=== PATIENT | male | born 1960 | race Caucasian/White ===

== ENCOUNTER 2021-09-09 11:06 | Inpatient (IN) ==
[2021-09-09] MEDS ORDERED: Isovue-370 500 ML BOTTLE IVP ONE (11:56)
[2021-09-09] MEDS ORDERED: 0.9 % Sodium Chloride 1,000 ML IVC ONE (11:56)
[2021-09-09 12:10] LABS: Hematocrit 23.9 % (37.5-50.1); Mean Corpuscular HGB Conc 29.3 g/dL (31.6-35.5); Mean Corpuscular Hemoglobin 27.6 pg (28.0-33.3); Mean Corpuscular Volume 94.1 fL (83.0-100.0); Mean Platelet Volume 10.3 fL (9.4-12.4); Platelet Count 283 K/mcL (140-400); Red Blood Count 2.54 M/mcL (4.19-5.50); Red Cell Distribution Width 14.3 % (11.5-14.5); White Blood Count 9.6 K/mcL (4.3-11.1)
[2021-09-09 12:21] LABS: INR 1.3; Prothrombin Time 14.2 Seconds (9.4-12.1)
[2021-09-09 12:24] LABS: Activated Partial Thrombo Time 33.2 Seconds (26.0-36.0)
[2021-09-09 12:27] LABS: BUN/Creatinine Ratio 23 (6-26); Blood Urea Nitrogen 26 mg/dL (6-20); Calcium 8.5 mg/dL (8.6-10.3); Carbon Dioxide 33 mEq/L (23-29); Chloride 98 mEq/L (98-107); Creatine Kinase 410 Units/L (30-223); Glucose 94 mg/dL (70-105); Magnesium 2.5 mg/dL (1.6-2.6); Osmolality,Calculated 285 (280-300); Potassium 5.1 mEq/L (3.5-5.1); Sodium 135 mEq/L (136-145); eGFR For African Americans > 60 (> 60); eGFR For Non-African Americans > 60 (> 60)
[2021-09-09 12:32] LABS: Troponin I 0.06 ng/mL (< 0.04)
[2021-09-09 12:33] LABS: Phosphorous 3.5 mg/dL (2.7-4.5)
[2021-09-09] MEDS ORDERED: Azithromycin 500 MG in 0.9 % Sodium Chloride 250 ML IVPB ONE (13:20)
[2021-09-09] MEDS ORDERED: cefTRIAXone 1,000 MG in 0.9 % Sodium Chloride Mini Bag 100 ML IVPB ONE (13:20)
[2021-09-09] MEDS ORDERED: Aspirin 325 MG TABLET PO ONE (14:12)
[2021-09-09 15:08] LABS: Bilirubin,Urine Negative (Negative); Blood,Urine Negative (Negative); Clarity,Urine Clear (Clear); Color,Urine Light-Yellow (Yellow); Glucose,Urine (UA) Normal (Normal); Hyaline Casts,Urine Few per lpf (None Seen); Ketones,Urine Negative (Negative); Leukocyte Esterase,Urine Negative (Negative); Mucus,Urine Few per lpf (None-Few); Nitrite,Urine Negative (Negative); Protein,Urine 30 mg/dL (Neg-Trace); RBC,Urine 0-3 per hpf (0-3); Specific Gravity,Urine > 1.030 (1.010-1.025); Urobilinogen,Urine Normal (Normal); WBC,Urine 0-3 per hpf (0-3)
[2021-09-09 15:11] LABS: Amphetamine Screen,Urine Negative ng/mL (Cutoff=1000); Barbiturate Screen,Urine Negative ng/mL (Cutoff=200); Benzodiazepines Screen,Urine Negative ng/mL (Cutoff=200); Cannabinoid Screen,Urine Negative ng/mL (Cutoff = 50); Cocaine Screen,Urine Negative ng/mL (Cutoff= 300); Opiate Screen,Urine Positive ng/mL (Cutoff=300); Phencyclidine Screen,Urine Negative ng/mL (Cutoff=25)
[2021-09-09 15:33] LABS: Influenza A PCR Negative (Negative); Influenza B PCR Negative (Negative); Resp. Syncytial Virus PCR Negative (Negative); SARS-CoV-2 by PCR (In House) Negative (Negative)
[2021-09-09 19:04] LABS: Immature Granulocytes % 0.2 % (0-4); Segmented Neutrophils % 85.9 %
[2021-09-09 19:05] LABS: Basophils % 0.5 %; Eosinophils # 0.3 K/mcL (0.0-0.6); Hematocrit 24.5 % (37.5-50.1); Hemoglobin 7.2 g/dL (12.9-16.9); Lymphocytes # 0.5 K/mcL (0.6-4.6); Lymphocytes % 5.1 %; Mean Corpuscular HGB Conc 29.4 g/dL (31.6-35.5); Mean Corpuscular Hemoglobin 27.9 pg (28.0-33.3); Mean Platelet Volume 10.3 fL (9.4-12.4); Monocytes # 0.5 K/mcL (0.0-1.3); Monocytes % 5.3 %; Platelet Count 289 K/mcL (140-400); Red Blood Count 2.58 M/mcL (4.19-5.50); Red Cell Distribution Width 14.2 % (11.5-14.5); White Blood Count 8.8 K/mcL (4.3-11.1)
[2021-09-09 19:06] LABS: Neutrophils # 7.6 K/mcL (1.6-8.9)
[2021-09-09 19:20] LABS: Hypochromasia Present (Not Present); Microcytosis Present (Not Present); Platelet Estimate Normal (Normal); Stomatocytes 1+ (Not Present)
[2021-09-10] MEDS ORDERED: Naloxone 0.4 MG/ML INJ IVP PRN (00:06)
[2021-09-10] MEDS ORDERED: Ondansetron 4 MG/2 ML VIAL IVP PRN (00:06)
[2021-09-10] MEDS ORDERED: Ipratropium/Albuterol Neb 3 ML IH PRN (00:11)
[2021-09-10] MEDS ORDERED: *HR* Metoprolol 5 MG/5 ML VIAL IVP PRN (01:10)
[2021-09-10] MEDS ORDERED: MethylPREDNISolone 40 MG/ML VIAL IVP SCH ×2 (01:40→14:00)
[2021-09-10 02:39] LABS: Alanine Aminotransferase 14 Units/L (7-52); Albumin/Globulin Ratio 0.9 (1.1-2.2); Alkaline Phosphatase 78 Units/L (34-104); Aspartate Amino Transferase 43 Units/L (13-39); BUN/Creatinine Ratio 23 (6-26); Bilirubin,Indirect 0.2 mg/dL (0.0-1.0); Bilirubin,Total 0.2 mg/dL (0.3-1.0); Blood Urea Nitrogen 17 mg/dL (6-20); Calcium 8.6 mg/dL (8.6-10.3); Carbon Dioxide 30 mEq/L (23-29); Chloride 101 mEq/L (98-107); Creatine Kinase 1646 Units/L (30-223); Globulin 3.5 g/dL (2.4-3.5); Glucose 77 mg/dL (70-105); Magnesium 2.2 mg/dL (1.6-2.6); Osmolality,Calculated 284 (280-300); Potassium 4.1 mEq/L (3.5-5.1); Sodium 137 mEq/L (136-145); Total Protein 6.5 g/dL (6.4-8.9); eGFR For African Americans > 60 (> 60); eGFR For Non-African Americans > 60 (> 60)
[2021-09-10] MEDS ORDERED: 0.9 % Sodium Chloride 1,000 ML IVC SCH (03:15)
[2021-09-10] MEDS ORDERED: *HR* LORazepam 1 MG TABLET GTUBE PRN (03:23)
[2021-09-10] MEDS ORDERED: *HR* LORazepam 2 MG/ML VIAL IVP ONE (03:30)
[2021-09-10] MEDS ORDERED: *HR* OxyCODONE ER (12 HR) 10 MG TABLET PO PRN (04:00)
[2021-09-10] MEDS ORDERED: Haloperidol Lactate 5 MG/ML VIAL IVP ONE (05:59)
[2021-09-10] MEDS ORDERED: Dexmedetomidine HCl 400 MCG/100 ML MLS IVC SCH (07:45)
[2021-09-10] MEDS ORDERED: Piperacillin/Tazobactam 3.375 GM in 0.9 % Sodium Chloride Mini Bag 100 ML IVPB SCH (08:00)
[2021-09-10] MEDS ORDERED: *HR* LORazepam Oral Conc 2 MG/ML SL PRN (08:13)
[2021-09-10] MEDS ORDERED: levoFLOXacin 750 MG/150 ML 750 MG/150 ML BAG IVPB SCH (09:00)
[2021-09-10] MEDS: Nystatin Cream 15 GM TUBE TP SCH ×2 (10:11→20:02)
[2021-09-10] MEDS ORDERED: Gabapentin 300 MG CAPSULE PO SCH (15:00)
[2021-09-10] MEDS: Methadone Oral Concentrate 50 MG/5 ML UDC GTUBE SCH (16:27)
[2021-09-10] MEDS: Gabapentin 300 MG CAPSULE GTUBE SCH ×2 (16:27→20:02)
[2021-09-10] MEDS ORDERED: *HR* Methadone 10 MG TABLET PO SCH (18:00)
[2021-09-10] MEDS: Morphine Sulfate Oral CONC 10 MG/0.5 ML ORAL.SYG SL PRN (19:56)
[2021-09-10] MEDS ORDERED: *HR* Metoprolol 5 MG/5 ML VIAL IVP ONE (20:29)
[2021-09-11] MEDS ORDERED: *HR* Metoprolol 5 MG/5 ML VIAL IVP ONE (00:13)
[2021-09-11 01:21] LABS: INR 1.3
[2021-09-11 01:23] LABS: Activated Partial Thrombo Time 23.5 Seconds (26.0-36.0)
[2021-09-11 01:34] LABS: Alanine Aminotransferase 25 Units/L (7-52); Albumin/Globulin Ratio 0.9 (1.1-2.2); Alkaline Phosphatase 100 Units/L (34-104); Aspartate Amino Transferase 74 Units/L (13-39); BUN/Creatinine Ratio 20 (6-26); Bilirubin,Total 0.4 mg/dL (0.3-1.0); Blood Urea Nitrogen 13 mg/dL (6-20); Calcium 9.6 mg/dL (8.6-10.3); Carbon Dioxide 22 mEq/L (23-29); Chloride 96 mEq/L (98-107); Globulin 4.3 g/dL (2.4-3.5); Glucose 197 mg/dL (70-105); Osmolality,Calculated 282 (280-300); Potassium 3.9 mEq/L (3.5-5.1); Sodium 133 mEq/L (136-145); Total Protein 8.3 g/dL (6.4-8.9); eGFR For African Americans > 60 (> 60); eGFR For Non-African Americans > 60 (> 60)
[2021-09-11 02:29] LABS: Basophils % 0.2 %; Hematocrit 33.1 % (37.5-50.1); Hemoglobin 9.9 g/dL (12.9-16.9); Immature Granulocytes % 0.4 % (0-4); Lymphocytes # 0.2 K/mcL (0.6-4.6); Lymphocytes % 1.5 %; Mean Corpuscular HGB Conc 29.9 g/dL (31.6-35.5); Mean Corpuscular Volume 90.2 fL (83.0-100.0); Mean Platelet Volume 10.2 fL (9.4-12.4); Monocytes % 6.4 %; Neutrophils # 14.4 K/mcL (1.6-8.9); Platelet Count 480 K/mcL (140-400); Red Blood Count 3.67 M/mcL (4.19-5.50); Red Cell Distribution Width 14.1 % (11.5-14.5); Segmented Neutrophils % 91.5 %; White Blood Count 15.7 K/mcL (4.3-11.1)
[2021-09-11] MEDS: Morphine Sulfate Oral CONC 10 MG/0.5 ML ORAL.SYG SL PRN ×2 (03:18→15:19)
[2021-09-11] MEDS ORDERED: *HR* Labetalol 20 MG/4 ML SYRINGE IVP ONE (04:17)
[2021-09-11] MEDS: Methadone Oral Concentrate 50 MG/5 ML UDC GTUBE SCH ×2 (05:20→18:40)
[2021-09-11] MEDS ORDERED: GuaiFENesin Liq 200 MG/10 ML UDC GTUBE PRN (07:21)
[2021-09-11] MEDS ORDERED: GABAPENTIN 250 MG/5 ML GTUBE SCH (07:30)
[2021-09-11] MEDS ORDERED: Doxycycline 100 MG CAPSULE PO SCH (09:00)
[2021-09-11] MEDS: Gabapentin 300 MG CAPSULE GTUBE SCH ×3 (09:32→21:26)
[2021-09-11] MEDS: predniSONE 1 MG TABLET GTUBE SCH (09:33)
[2021-09-11] MEDS: (Bictegrav/Emtricit/Tenofov Ala [Biktarvy 50-200-25 MG]) GTUBE SCH (11:03)
[2021-09-11] MEDS: Nystatin Cream 15 GM TUBE TP SCH ×2 (11:03→21:27)
[2021-09-11] MEDS: *HR* Metformin 500 MG TABLET GTUBE SCH ×2 (11:08→16:27)
[2021-09-11] MEDS ORDERED: Lidocaine -MPF 1% 5 ML AMPUL ID ONE (19:08)
[2021-09-11] MEDS ORDERED: Lidocaine -MPF 1% 5 ML AMPUL ONE (19:09)
[2021-09-11 23:18] VITALS: O2SAT 95
[2021-09-12 05:07] LABS: Basophils % 0.4 %; Eosinophils # 0.2 K/mcL (0.0-0.6); Eosinophils % 2.2 %; Hematocrit 31.7 % (37.5-50.1); Hemoglobin 9.8 g/dL (12.9-16.9); Immature Granulocytes % 0.3 % (0-4); Lymphocytes # 0.5 K/mcL (0.6-4.6); Mean Corpuscular HGB Conc 30.9 g/dL (31.6-35.5); Mean Corpuscular Hemoglobin 27.5 pg (28.0-33.3); Mean Platelet Volume 10.2 fL (9.4-12.4); Monocytes % 11.1 %; Neutrophils # 7.4 K/mcL (1.6-8.9); Platelet Count 498 K/mcL (140-400); Red Blood Count 3.56 M/mcL (4.19-5.50); Red Cell Distribution Width 14.1 % (11.5-14.5); White Blood Count 9.2 K/mcL (4.3-11.1)
[2021-09-12 05:16] LABS: BUN/Creatinine Ratio 27 (6-26); Blood Urea Nitrogen 20 mg/dL (6-20); Calcium 9.5 mg/dL (8.6-10.3); Carbon Dioxide 25 mEq/L (23-29); Chloride 98 mEq/L (98-107); Glucose 100 mg/dL (70-105); Magnesium 2.1 mg/dL (1.6-2.6); Osmolality,Calculated 283 (280-300); Phosphorous 2.5 mg/dL (2.7-4.5); Potassium 3.5 mEq/L (3.5-5.1); Sodium 135 mEq/L (136-145); eGFR For African Americans > 60 (> 60); eGFR For Non-African Americans > 60 (> 60)
[2021-09-12] MEDS: Neosporin OINT 15 GM TUBE TP SCH ×2 (06:03→09:06)
[2021-09-12] MEDS: Methadone Oral Concentrate 50 MG/5 ML UDC GTUBE SCH (06:04)
[2021-09-12 07:45] VITALS: BP 171/92; PULSE 102; TEMP 97.7
[2021-09-12] MEDS ORDERED: carvediloL 6.25 MG TABLET GTUBE SCH (08:00)
[2021-09-12] MEDS: Morphine Sulfate Oral CONC 10 MG/0.5 ML ORAL.SYG SL PRN (08:44)
[2021-09-12] MEDS: predniSONE 1 MG TABLET GTUBE SCH (08:45)
[2021-09-12] MEDS: *HR* Metformin 500 MG TABLET GTUBE SCH (08:46)
[2021-09-12] MEDS: Nystatin Cream 15 GM TUBE TP SCH (08:46)
[2021-09-12] MEDS: Gabapentin 300 MG CAPSULE GTUBE SCH (09:06)
[2021-09-12] MEDS: (Bictegrav/Emtricit/Tenofov Ala [Biktarvy 50-200-25 MG]) GTUBE SCH (09:06)
== END 2021-09-12 15:43 | disposition hospice, home (50) | DRG 890 ==
LOC: 2NNU 11:06 → EMEROOARM 11:06 → SUATTDRO 23:56 → OBSVTOIN 23:56 → 2NNU 09-10 00:40 → 2ANU 09-10 10:54
PROVIDERS: ADMIT Internal Medicine; ATTEND Pharmacist